=== PATIENT | female | born 1980 | race Hispanic/Latino ===

== ENCOUNTER 2022-06-27 13:28 | Emergency (ER) | payer SELFPAY ==
[~2022-06-27] VITALS: Ht 162.6 cm; Wt 79.5 kg
[~2022-06-27 13:28] MED LIST: FERROUS SULF325 M2 PO; IBUPROFEN600 MG PO; METHIMAZOLE5 MG PO; PRE-NATAL PO
[2022-06-27 13:41] VITALS: BP 118/89
[2022-06-27 13:45] VITALS: BP 127/80
[2022-06-27] MEDS ORDERED: VOLTAREN1%GEL TOP (16:03)
[2022-06-27] MEDS ORDERED: FLEXERIL5 M1 PO (16:03)
[2022-06-27 16:23] VITALS: BP 127/80
== END 2022-06-27 16:23 | disposition home or self-care (01) | DRG 552 ==
LOC: ED 13:28
DX: M54.2 Cervicalgia (principal); W22.09XA Striking against other stationary object, initial encounter; Y93.H2 Activity, gardening and landscaping